=== PATIENT | male | born 1960 | race Caucasian/White ===

== ENCOUNTER 2019-07-17 01:47 | Inpatient (IN) | payer OTHER, SELFPAY ==
[2019-07-17] MEDS ORDERED: Nitroglycerin 0.4 MG TAB 1 EACH ONE (02:21)
[2019-07-17 02:29] LABS: #Eosinphils 0.1 thou/uL (0.0-0.7); #Lymphocytes 1.5 thou/uL (1.20-3.40); #Neutrophils 5.1 thou/uL (1.40-6.50); %Basophils 0.6 % (0.0-1.0); %Eosinophils 1.4 % (0.0-10.0); %Lymphocytes 19.7 % (21.0-51.0); %Monocytes 12.5 % (0.0-10.0); %Neutrophils 65.8 % (42.0-75.0); Hemoglobin 15.5 g/dL (14.0-18.0); Mean Corpuscular HGB CONC 33.4 g/dL (32.0-36.0); Mean Corpuscular Hemoglobin 27.7 pg (27.0-31.0); Mean Corpuscular Volume 82.8 fL (78.0-98.0); Mean Platelet Volume 9.4 fL (7.4-10.4); Platelet Count 197 thou/uL (130-400); RBC Distribution Width 13.6 % (11.5-14.5); White Blood Cell (WBC) Count 7.7 thou/uL (4.8-10.8)
[2019-07-17 02:45] LABS: Amphetamine Not Detected (NotDetected); Barbiturates Screen Not Detected (NotDetected); Benzodiazepine Screen Not Detected (NotDetected); Cocaine Metabolite Screen Not Detected (NotDetected); Medtox Control Line Valid? VALID (VALID); Medtox Reader # READER 1; Methadone Not Detected (NotDetected); Methamphetamine Not Detected (NotDetected); Opiate Screen Not Detected (NotDetected); Oxycodone Screen Not Detected (NotDetected); Phencyclidine (PCP) Not Detected (NotDetected); THC/Cannabinoid Screen Not Detected (NotDetected); Tricyclic Screen Not Detected (NotDetected)
[2019-07-17 02:51] LABS: ALT (SGPT) 14 U/L (8-55); AST (SGOT) 14 U/L (5-34); Alkaline Phosphatase 83 U/L (40-110); Anion Gap 14 mmol/L (10-20); BUN (Urea Nitrogen) 12 mg/dL (8.4-25.7); Bilirubin, Total 0.3 mg/dL (0.2-1.2); CK (CPK) 115 U/L (30-200); Calc. Creatinine Clearance 0 mL/min (70-130); Calcium 9.3 mg/dL (7.8-10.44); Carbon Dioxide 22 mmol/L (23-31); Chloride 102 mmol/L (98-107); Estimated GFR-MDRD 76; Globulin 3.2 g/dL (2.4-3.5); Glucose 369 mg/dL (80-115); Lipase 15 U/L (8-78); Potassium 3.9 mmol/L (3.5-5.1); Protein, Total 7.2 g/dL (5.8-8.1); Sodium 134 mmol/L (136-145)
[2019-07-17 03:18] LABS: CKMB 5.6 ng/mL (0-6.6)
[2019-07-17] MEDS ORDERED: Enoxaparin Sodium 100 MG/ML SYRINGE SC SCH (04:00)
[2019-07-17] MEDS ORDERED: Enoxaparin Sodium 100 MG/ML SYRINGE ONE (04:03)
[2019-07-17 04:46] LABS: Troponin I 0.535 ng/mL (< 0.028)
[2019-07-17] MEDS ORDERED: Nitroglycerin 0.4 MG TAB (25 Tab Bottle) SL PRN (04:58)
[2019-07-17] MEDS ORDERED: Morphine 2 MG/ML SYRINGE SLOW IVP PRN (04:59)
[2019-07-17] MEDS ORDERED: Ondansetron PF 4 MG/2 ML Vial IVP PRN (04:59)
[2019-07-17] MEDS ORDERED: hydrALAZINE 20 MG/ML VIAL SLOW IVP PRN (04:59)
[2019-07-17] MEDS ORDERED: cloNIDine 0.1 MG TAB PO PRN (04:59)
[2019-07-17] MEDS ORDERED: Promethazine HCl 12.5 MG in Sodium Chloride 0.9% 50 ML IVPB PRN (04:59)
[2019-07-17] MEDS ORDERED: Acetaminophen 325 MG TAB PO PRN (05:00)
[2019-07-17] MEDS ORDERED: Bisacodyl 5 MG TAB PO PRN (05:00)
[2019-07-17] MEDS ORDERED: Senokot S 8.6-50 MG TAB PO PRN (05:00)
[2019-07-17] MEDS ORDERED: Bisacodyl 10 MG SUPP PR PRN (05:00)
[2019-07-17] MEDS ORDERED: HYDROcodone/Acetaminophen 5/325 mg Tablet PO PRN (05:00)
--- NOTE | 2019-07-17 05:01 | PDOC.HHP ---
Hospitalist HPI - History of Present Illness Chest pain History of Present Illness: Patient is a 59 year old male with PMH CAD, CABG who presents to ED for chest pain which began today, 01/22 earlier, radiated to arm, now sleeping but rousable. No SOB. Has h/o CABG, sees Dr Lundberg, got out of [facility] this last summer. Was told may need to see Dr Chong (who did previous surgery) about redo CABG, but details not clear from conversation. Has severe ASA allergy confirmed by me, patient already on Brilinta and reports compliance. In ED, troponins elevated and given lovenox. Hospitalist ROS - Review of Systems Constitutional: denies: fever, chills, sweats, weakness, malaise, other Eyes: denies: pain, vision change, conjunctivae inflammation, eyelid inflammation, redness, other ENT: denies: ear pain, ear discharge, nose pain, nose discharge, nose congestion , mouth pain, mouth swelling, throat pain, throat swelling, other Cardiovascular: reports: chest pain. denies: palpitations, orthopnea, paroxysmal noc. dyspnea, edema, light headedness, other Gastrointestinal: denies: nausea, vomiting, abdominal pain, diarrhea, constipation, melena, hematochezia, other Genitourinary: denies: dysuria, frequency, incontinence, hematuria, retention, other Musculoskeletal: denies: neck pain, shoulder pain, arm pain, back pain, hand pain, leg pain, foot pain, other Skin: denies: rash, lesions, xochilt, bruising, other Neurological: denies: weakness, numbness, incoordination, change in speech, confusion, seizures, other All other systems reviewed; all pertinent +/- noted in HPI/Subj Hospitalist History - Past Medical History Other Medical History: Flu vaccine not up to date, Tetanus not up to date, Pneumococcal vaccine not up to date, Past medical history includes cardiac history, coronary artery disease , Past medical history includes history of hyperlipidemia, Notes: CABG X 3 2014, Past medical history includes history of hypertension, which has been treated, Patient is compliant, Past medical history includes history of malignancy, primary site skin, treated with surgery, Past medical history includes pulmonary disease, chronic obstructive pulmonary disease. COPD. - Past Surgical History Other Surgical History: Surgical history of cholecystectomy, Surgical history of tonsillectomy, Surgical history of coronary artery bypass graft surgery, three vessels. RIGHT KNEE LAPRASCOPIC SURGERY left. - Family History Family History: reports: no pertinent history - Social History Other Social History: Patient currently uses drugs, abuses methamphetamines, Drug history notes: last use 09/2015, Patient currently uses tobacco, smokes cigarettes, 1 cigarette per day, last cigarette 09/2015,. - Exam General Appearance: NAD, awake alert Eye: PERRL, anicteric sclera ENT: normocephalic atraumatic, no oropharyngeal lesions, moist mucosa Neck: supple, symmetric, no JVD, no thyromegaly, no lymphadenopathy, no carotid bruit Heart: RRR, no murmur, no gallops, no rubs, normal peripheral pulses Respiratory: CTAB Gastrointestinal: soft, non-tender, non-distended, normal bowel sounds, no palpable masses, no hepatomegaly, no splenomegaly, no bruit Extremities: no cyanosis, no clubbing, no edema Skin: normal turgor, no lesions, no rashes Neurological: cranial nerve grossly intact, normal sensation to touch, no weakness, no focal deficits, no new deficit Musculoskeletal: normal tone, normal strength, no muscle wasting Psychiatric: normal affect, normal behavior, A&O x 3 Hospitalist Results - Labs Result Diagrams: 07/17/19 02:00 07/17/19 02:00 Lab results: WBC 7.7 thou/uL (4.8-10.8) 07/17/19 02:00 Hgb 15.5 g/dL (14.0-18.0) 07/17/19 02:00 Hct 46.4 % (42.0-52.0) 07/17/19 02:00 MCV 82.8 fL (78.0-98.0) 07/17/19 02:00 Plt Count 197 thou/uL (130-400) 07/17/19 02:00 Neutrophils % 65.8 % (42.0-75.0) 07/17/19 02:00 Sodium 134 mmol/L (136-145) L 07/17/19 02:00 Potassium 3.9 mmol/L (3.5-5.1) 07/17/19 02:00 Chloride 102 mmol/L (98-107) 07/17/19 02:00 Carbon Dioxide 22 mmol/L (23-31) L 07/17/19 02:00 BUN 12 mg/dL (8.4-25.7) 07/17/19 02:00 Creatinine 1.00 mg/dL (0.7-1.3) 07/17/19 02:00 Glucose 369 mg/dL (80-115) H 07/17/19 02:00 Calcium 9.3 mg/dL (7.8-10.44) 07/17/19 02:00 Total Bilirubin 0.3 mg/dL (0.2-1.2) 07/17/19 02:00 AST 14 U/L (5-34) 07/17/19 02:00 ALT 14 U/L (8-55) 07/17/19 02:00 Alkaline Phosphatase 83 U/L (40-110) 07/17/19 02:00 Creatine Kinase 115 U/L (30-200) 07/17/19 02:00 CK-MB (CK-2) 5.6 ng/mL (0-6.6) 07/17/19 02:00 Troponin I 0.535 ng/mL (< 0.028) H* 07/17/19 04:05 Serum Total Protein 7.2 g/dL (5.8-8.1) 07/17/19 02:00 Albumin 4.0 g/dL (3.4-4.8) 07/17/19 02:00 Lipase 15 U/L (8-78) 07/17/19 02:00 Additional comment: Labs, EKG, vitals reviewed BP: 135/77 Pulse: 71 Resp: 16 Pain: 3 O2 sat: 97 on (Room Air) Time: 07/17/2019 03:02. troponin elevated Hospitalist H&P A/P - Plan Plan: Patient is a 59 year old male with PMH CAD, CABG who presents to ED for chest pain. # NSTEMI - with history of CAD, CABG - admit to telemetry - continue lovenox, ticagrelor, other home medications - severe ASA allergy confirmed, antiplatelet limited to ticagrelor - consult Dr Lundberg, NPO, trend troponin # COPD - continue spiriva, PRN duoneb # methamphetamine abuse - counselling before d/c, moniotr for withdrawal
[2019-07-17] MEDS ORDERED: Ipratropium Bromide 2.5 ml Neb ONE (07:10)
[2019-07-17] MEDS: Ipratropium Bromide 2.5 ml Neb NEB SCH ×4 (07:17→23:16)
--- NOTE | 2019-07-17 09:04 | RAD ---
PORTABLE CHEST ONE VIEW: 07/17/2019 1:38 a.m. HISTORY: Chest pain. COMPARISON: 01/06/2017 FINDINGS: There are changes of median sternotomy. The heart size is normal. No lobar consolidation, pneumothora los or pleural effusions are seen. There is mild infiltrate versus atelectatic change in the left jimmie g base. POS: [facility]
[2019-07-17] MEDS: TICAGRELOR 90 MG TABLET PO SCH ×2 (10:40→20:18)
[2019-07-17 11:30] LABS: Troponin I 1.508 ng/mL (< 0.028)
[2019-07-17] MEDS ORDERED: hydrALAZINE 20 MG/ML VIAL ONE (11:34)
[2019-07-17] MEDS ORDERED: hydrALAZINE 20 MG/ML VIAL SLOW IVP SCH (11:45)
[2019-07-17] MEDS: Carvedilol 6.25 MG TAB PO SCH ×2 (12:35→17:48)
[2019-07-17] MEDS: Polyethylene Glycol 3350 17 GM Packet PO SCH (17:03)
[2019-07-17 17:50] VITALS: BMI 33.2
[2019-07-17 18:52] LABS: Troponin I 2.025 ng/mL (< 0.028)
[2019-07-17] MEDS ORDERED: Communication Order-Pharmacy FS SCH (19:15)
--- NOTE | 2019-07-17 19:42 | CON ---
DATE OF CONSULTATION: 07/17/2019 REASON FOR CONSULTATION: Non-STEMI. PRIMARY HISTOLOGY TEACHER: Margoth Lundberg MD HISTORY OF PRESENT ILLNESS: Mr. Pichardo is a very pleasant 59-year-old white gentleman, who comes to the hospital for chest pain. He was brought in and evaluated in the ER. Troponins were drawn and they have been trending up, so Cardiology has been consulted for further evaluation and care. He has not seen Dr. Lundberg in some time. He had bypass surgery back in April 2015. About a year later, he presented to the hospital and a repeat heart catheterization showed an anastomotic lesion from the JARAMILLO to the LAD, which was successfully stented with very good results. I have reviewed those films. He had a widely patent bypass graft to the right coronary artery, which is chronically occluded. He was in [facility] recently and he states that he has been having chest pain. He left [facility] about 6 months ago around summer and has been having episodes of chest pain on and off. Today, he had an episode that brought him to the ER as it was worse than before. Cardiology is being consulted for this. PAST MEDICAL HISTORY: 1. Coronary artery disease, status post CABG as above. 2. Ischemic cardiomyopathy, EF around 35%. 3. Hypertension. 4. Hyperlipidemia. 5. COPD. 6. Tobacco use. 7. Polysubstance abuse in the past. 8. He has been clean for 3 years from his report. PAST SURGICAL HISTORY: 1. CABG x3 in 2014. Reading Dr[address] Chong's note, he had a JARAMILLO to the LAD, a vein graft to PDA at its origin and a saphenous vein to an apical LV branch. 2. Stenting in April 2016 as above. 3. Right total knee replacement. SOCIAL HISTORY: Continues to smoke, but no drug use. No alcohol use. OUTPATIENT MEDICATIONS: Family will bring medication list from [facility] as he has been on all his medications, he still has some left. ALLERGIES: 1. ASPIRIN GIVES HIVES. 2. IBUPROFEN GIVES HIVES. FAMILY HISTORY: Brother with coronary artery disease and a second brother with lung cancer. REVIEW OF SYSTEMS: A 12-point review of systems was done and was all negative unless stated in the history of present illness. PHYSICAL EXAMINATION: VITAL SIGNS: Temperature 98.1, pulse 77, respiratory rate 18, saturations 97% on room air, and blood pressure 126/85. GENERAL: Awake, alert, oriented x3, in no distress. HEENT: Normocephalic and atraumatic. NECK: Supple. LUNGS: Clear. CARDIOVASCULAR: S1, S2. No S3 or S4. No murmurs. ABDOMEN: Soft. Positive bowel sounds. EXTREMITIES: No edema. SKIN: Warm and dry. LABORATORY DATA: Laboratory work was reviewed. CBC with a white count of 7, hemoglobin 15, hematocrit 46, platelet count 197. Chemistries are unremarkable except for sodium 134. Troponin was 0.35, 0.53, now 1.5 and then 2.0. Urine drug screen is completely negative. EKG was reviewed. Chest x-ray was reviewed. ASSESSMENT/PLAN: 1. Fnf-MD-qheyokyem myocardial infarction. 2. Coronary artery disease, status post coronary artery bypass graft x3 in the past. 3. Status post percutaneous coronary intervention to the anastomosis with left internal mammary artery to the left anterior descending in 2016. 4. Noncompliance. PLAN: 1. We will plan on proceeding with heart catheterization. We spoke about the risks and benefits of the procedure. Risks included, but not limited to stroke, [place], , bleeding, need for blood transfusion, limb loss, organ loss. The patient understands, verbalized understanding of this and agrees to proceed. 2. May need bare metal stenting given his lack of compliance. If stent needs to be placed in a vein graft, this is better treated with drug-eluting stent. 3. Further recommendations per results of coronary angiogram. 4. We will plan on doing a right femoral access. Job ID: [id number]
[2019-07-17] MEDS: Atorvastatin Calcium 40 MG TAB PO SCH (20:18)
[2019-07-17] MEDS: Enoxaparin Sodium 100 MG/ML SYRINGE SC SCH (20:18)
[2019-07-18] MEDS ORDERED: Sodium Chloride 0.9% 250 ML IV SCH (00:01)
[2019-07-18 04:43] LABS: #Eosinphils 0.1 thou/uL (0.0-0.7); #Lymphocytes 1.4 thou/uL (1.20-3.40); #Monocytes 0.9 thou/uL (0.11-0.59); #Neutrophils 4.1 thou/uL (1.40-6.50); %Basophils 0.2 % (0.0-1.0); %Eosinophils 1.1 % (0.0-10.0); %Lymphocytes 21.8 % (21.0-51.0); %Monocytes 14.4 % (0.0-10.0); %Neutrophils 62.5 % (42.0-75.0); Mean Corpuscular HGB CONC 32.6 g/dL (32.0-36.0); Mean Corpuscular Hemoglobin 26.9 pg (27.0-31.0); Mean Corpuscular Volume 82.4 fL (78.0-98.0); Mean Platelet Volume 9.1 fL (7.4-10.4); Platelet Count 200 thou/uL (130-400); RBC Distribution Width 13.9 % (11.5-14.5); Red Blood Cell (RBC) Count 5.59 mill/uL (4.70-6.10); White Blood Cell (WBC) Count 6.5 thou/uL (4.8-10.8)
[2019-07-18] MEDS: Carvedilol 6.25 MG TAB PO SCH ×2 (05:05→18:36)
[2019-07-18] MEDS: TICAGRELOR 90 MG TABLET PO SCH ×2 (05:05→20:46)
[2019-07-18 05:14] LABS: Anion Gap 11 mmol/L (10-20); BUN (Urea Nitrogen) 11 mg/dL (8.4-25.7); Calc. Creatinine Clearance 127 mL/min (70-130); Calcium 8.8 mg/dL (7.8-10.44); Carbon Dioxide 25 mmol/L (23-31); Chloride 105 mmol/L (98-107); Estimated GFR-MDRD 85; Glucose 185 mg/dL (80-115); Magnesium 1.9 mg/dL (1.6-2.6); Potassium 3.5 mmol/L (3.5-5.1); Sodium 137 mmol/L (136-145)
[2019-07-18] MEDS: Ipratropium Bromide 2.5 ml Neb NEB SCH ×4 (07:40→23:44)
[2019-07-18] MEDS: Enoxaparin Sodium 100 MG/ML SYRINGE SC SCH (07:45)
[2019-07-18] MEDS: Polyethylene Glycol 3350 17 GM Packet PO SCH (07:46)
[2019-07-18] MEDS ORDERED: FLU VACC QS2019-20(6MOS UP)/PF 60 MCG/0.5 ML SYRINGE IM ONE (09:00)
[2019-07-18] MEDS ORDERED: Iopamidol 370 76% 100 ML VIAL ONE (09:57)
[2019-07-18] MEDS ORDERED: Heparin (Artline) 1,000 ML ONE (11:10)
[2019-07-18] MEDS ORDERED: Midazolam HCl 2 mg/2 ml Vial ONE (11:44)
[2019-07-18] MEDS ORDERED: Fentanyl 100 MCG/2 ML VIAL ONE (11:45)
[2019-07-18] MEDS ORDERED: Sodium Chloride 0.9% 200 ML IV PRN (12:24)
[2019-07-18] MEDS ORDERED: Acetaminophen/Codeine 30-300mg Tablet PO PRN (12:24)
[2019-07-18] MEDS ORDERED: Sodium Chloride 0.9% 500 ML IV SCH (12:30)
[2019-07-18] MEDS ORDERED: Dextrose 5% in Water 1,000 ML IV PRN (15:16)
[2019-07-18] MEDS ORDERED: HumaLOG 300 UNITS/3 ML VIAL SC PRN (15:16)
[2019-07-18] MEDS ORDERED: Dextrose 50% Abboject 50 ML SYRINGE SLOW IVP PRN (15:16)
--- NOTE | 2019-07-18 15:20 | PDOC.HOSPP ---
- Subjective Encounter Date: 07/18/19 (f/u NSTEMI) Encounter Time: 15:17 Subjective: Pt asking to go home. Denies any pain in his chest, difficulty breathing, n/v/ abd pain. - Objective Vital Signs & Weight: Vital Signs (12 hours) Temp Pulse Resp BP BP BP Pulse Ox 07/18/19 13:25 66 14 99 07/18/19 11:40 98.4 F 69 18 139/84 139 H 07/18/19 08:55 96 07/18/19 08:30 98.3 F 75 18 123/83 96 07/18/19 07:40 95 18 99 07/18/19 05:05 126/85 07/18/19 03:54 98.6 F 75 18 140/99 H 95 Weight Weight 231 lb 8 oz Result Diagrams: 07/18/19 04:13 07/18/19 04:13 EKG Reviewed by me: Yes (tele - sinus 70's) Hospitalist ROS - Medication Medications: Active Medications Generic Name Dose Route Start Last Admin Trade Name Freq PRN Reason Stop Dose Admin Atorvastatin Calcium 40 mg 07/17/19 21:00 07/17/19 20:18 Lipitor PO 40 mg QPM HAROON Administration Carvedilol 6.25 mg 07/17/19 08:00 07/18/19 05:05 Coreg PO 6.25 mg BID-WM HAROON Administration Enoxaparin Sodium 100 mg 07/17/19 21:00 07/18/19 07:45 Lovenox SC Not Given Q12HR HAROON Sodium Chloride 500 mls @ 100 mls/hr 07/18/19 12:30 07/18/19 14:28 Normal Saline 0.9% IV 07/18/19 17:29 500 mls .Q5H HAROON Administration Ipratropium [place] 2.5 ml 07/17/19 07:00 07/18/19 13:25 Atrovent NEB 2.5 ml [id number] HAROON Administration Pantoprazole Sodium 40 mg 07/17/19 09:00 07/18/19 05:05 Protonix PO 40 mg DAILY HAROON Administration Polyethylene Glycol 17 gm 07/17/19 09:00 07/18/19 07:46 Miralax PO Not Given DAILY HAROON Ticagrelor 90 mg 07/17/19 09:00 01/03/20 05:05 Brilinta PO 90 mg BID HAROON Administration - Exam General Appearance: NAD Neck: supple Heart: RRR, no murmur Respiratory: CTAB, no wheezes, no rales, no ronchi Gastrointestinal: soft, non-tender, non-distended, normal bowel sounds Extremities: no cyanosis, no clubbing, no edema Psychiatric: normal affect Hosp A/P (1) NSTEMI (non-ST elevated myocardial infarction) Code(s): I21.4 - NON-ST ELEVATION (NSTEMI) MYOCARDIAL INFARCTION Status: Acute (2) Tobacco abuse Code(s): Z72.0 - TOBACCO USE Status: Acute (3) CAD (coronary artery disease) Code(s): I25.10 - ATHSCL HEART DISEASE OF [place] CORONARY ARTERY W/O ANG PCTRS Status: Chronic (4) HTN (hypertension) Code(s): I10 - ESSENTIAL (PRIMARY) HYPERTENSION Status: Chronic (5) Hyperlipidemia Code(s): E78.5 - HYPERLIPIDEMIA, UNSPECIFIED Status: Chronic (6) Diabetes mellitus Code(s): E11.9 - TYPE 2 DIABETES MELLITUS WITHOUT COMPLICATIONS Status: Chronic Qualifiers: Diabetes mellitus type: type 2 - Plan Appreciate Cardiology consult - s/p geophysical laboratory chief today, on full anticoagulation, brillinta, statin, beta-eleno DM - pt does not check blood sugars at home - is rx metformin. Will add ACHS accuchecks and SSI Pt asking to go home - I dont recommend until cleared by Cardiology dvt prophy - fully anticoagulated GI prophy - not indicated code status full reviewed plan of care with patient/friends-family in room, no questions or further needs at end of eval pt at high risk given age, co-morbidities and current presentation
[2019-07-18] MEDS: HumaLOG 300 UNITS/3 ML VIAL SC PRN (18:37)
[2019-07-18] MEDS ORDERED: Ipratropium Bromide 2.5 ml Neb ONE ×2 (19:24→23:42)
[2019-07-18] MEDS: Atorvastatin Calcium 40 MG TAB PO SCH (20:46)
[2019-07-19 04:38] LABS: #Basophils 0.1 thou/uL (0.0-0.2); #Lymphocytes 1.2 thou/uL (1.20-3.40); #Neutrophils 4.3 thou/uL (1.40-6.50); %Basophils 0.8 % (0.0-1.0); %Eosinophils 0.7 % (0.0-10.0); %Lymphocytes 18.5 % (21.0-51.0); %Monocytes 14.8 % (0.0-10.0); %Neutrophils 65.1 % (42.0-75.0); Hemoglobin 15.6 g/dL (14.0-18.0); Mean Corpuscular HGB CONC 32.9 g/dL (32.0-36.0); Mean Corpuscular Hemoglobin 27.3 pg (27.0-31.0); Mean Corpuscular Volume 83.1 fL (78.0-98.0); Platelet Count 206 thou/uL (130-400); RBC Distribution Width 13.9 % (11.5-14.5); Red Blood Cell (RBC) Count 5.71 mill/uL (4.70-6.10); White Blood Cell (WBC) Count 6.6 thou/uL (4.8-10.8)
[2019-07-19 04:47] LABS: Anion Gap 9 mmol/L (10-20); BUN (Urea Nitrogen) 12 mg/dL (8.4-25.7); Calc. Creatinine Clearance 118 mL/min (70-130); Calcium 9.3 mg/dL (7.8-10.44); Carbon Dioxide 27 mmol/L (23-31); Chloride 105 mmol/L (98-107); Estimated GFR-MDRD 78; Glucose 182 mg/dL (80-115); Magnesium 1.9 mg/dL (1.6-2.6); Potassium 3.9 mmol/L (3.5-5.1); Sodium 137 mmol/L (136-145)
[2019-07-19] MEDS: Ipratropium Bromide 2.5 ml Neb NEB SCH ×3 (08:02→19:31)
[2019-07-19] MEDS: TICAGRELOR 90 MG TABLET PO SCH ×2 (08:30→20:45)
[2019-07-19] MEDS: Polyethylene Glycol 3350 17 GM Packet PO SCH (08:30)
[2019-07-19] MEDS: Isosorbide Mononitrate (ER) 30 MG TAB PO SCH (08:30)
[2019-07-19] MEDS: Carvedilol 6.25 MG TAB PO SCH ×2 (08:30→17:27)
[2019-07-19] MEDS: HumaLOG 300 UNITS/3 ML VIAL SC PRN ×3 (08:31→17:28)
--- NOTE | 2019-07-19 16:02 | PDOC.HOSPP ---
- Subjective Encounter Date: 07/19/19 (f/u DM) Encounter Time: 15:59 Subjective: Pt denies any chest pain,n/v/abd pain, able to ambulate without difficulty. Denies any new sx. States he is ready to go home. - Objective Vital Signs & Weight: Vital Signs (12 hours) Temp Pulse Resp BP BP Pulse Ox 07/19/19 14:14 73 16 07/19/19 11:07 82 102/66 07/19/19 08:30 146/87 H 07/19/19 08:02 88 16 97 07/19/19 08:00 96 07/19/19 07:58 97.1 F L 79 18 146/87 H 96 Weight Weight 231 lb 8 oz I&O: 07/18/19 07/19/19 07/20/19 06:59 06:59 06:59 Intake Total 1450 Balance 1450 Result Diagrams: 07/19/19 04:15 07/19/19 04:15 Additional Labs: Accuchecks 07/19/19 07/19/19 07/18/19 10:58 05:41 20:22 POC Glucose 260 H 197 H 151 H 07/18/19 17:05 POC Glucose 371 H EKG Reviewed by me: Yes (tele - sinus 60-70's) Hospitalist ROS - Medication Medications: Active Medications Generic Name Dose Route Start Last Admin Trade Name Freq PRN Reason Stop Dose Admin Atorvastatin Calcium 40 mg 07/17/19 21:00 07/18/19 20:46 Lipitor PO 40 mg QPM HAROON Administration Carvedilol 6.25 mg 07/17/19 08:00 07/19/19 08:30 Coreg PO 6.25 mg BID-WM HAROON Administration Insulin Human Lispro 0 units 07/18/19 15:16 07/19/19 11:18 Humalog SC 4 unit .MILD SLIDING SCALE PRN Administration Mild Correctional Scale Ipratropium [place] 2.5 ml 07/17/19 07:00 07/19/19 14:14 Atrovent NEB 2.5 ml [id number] HAROON Administration Isosorbide Mononitrate 30 mg 07/19/19 09:00 07/19/19 08:30 Imdur Er PO 30 mg DAILY HAROON Administration Pantoprazole Sodium 40 mg 07/17/19 09:00 07/19/19 08:30 Protonix PO 40 mg DAILY HAROON Administration Polyethylene Glycol 17 gm 07/17/19 09:00 07/19/19 08:30 Miralax PO Not Given DAILY HAROON Ticagrelor 90 mg 07/17/19 09:00 07/19/19 08:30 Brilinta PO 90 mg BID HAROON Administration - Exam General Appearance: NAD Heart: RRR, no murmur Respiratory: CTAB, no wheezes, no rales, no ronchi Gastrointestinal: soft, non-tender, non-distended, normal bowel sounds Psychiatric: normal affect Hosp A/P (1) NSTEMI (non-ST elevated myocardial infarction) Code(s): I21.4 - NON-ST ELEVATION (NSTEMI) MYOCARDIAL INFARCTION Status: Acute (2) Tobacco abuse Code(s): Z72.0 - TOBACCO USE Status: Acute (3) CAD (coronary artery disease) Code(s): I25.10 - ATHSCL HEART DISEASE OF [place] CORONARY ARTERY W/O ANG PCTRS Status: Chronic (4) HTN (hypertension) Code(s): I10 - ESSENTIAL (PRIMARY) HYPERTENSION Status: Chronic (5) Hyperlipidemia Code(s): E78.5 - HYPERLIPIDEMIA, UNSPECIFIED Status: Chronic (6) Diabetes mellitus Code(s): E11.9 - TYPE 2 DIABETES MELLITUS WITHOUT COMPLICATIONS Status: Chronic Qualifiers: Diabetes mellitus type: type 2 - Plan Appreciate Cardiology consult - s/p union laborer yesterday, brillinta, statin, beta- eleno, long-acting nitrate DM - uncontrolled. Resume metformin, add glyburide Pt shared frustration about experience today - shared with charge nurse. We spent time discussing the reason behind the medications, where his body is at ,confirming that he has diabetes and it is a strong risk for future heart attack and stroke. . .with a focus on what he can do to reduce hisrisk. We also talked about tobacco and how destructive it is for his heart. dvt prophy - ambulatory GI prophy - not indicated code status full reviewed plan of care with patient, no questions or further needs at end of eval pt at high risk given age, co-morbidities and current presentation
[2019-07-19] MEDS: metFORMIN 500 MG TAB PO SCH (17:27)
[2019-07-19] MEDS: glipiZIDE 5 MG TAB PO SCH (17:27)
[2019-07-19] MEDS: Atorvastatin Calcium 40 MG TAB PO SCH (20:45)
[2019-07-20] MEDS: Ipratropium Bromide 2.5 ml Neb NEB SCH ×2 (00:26→07:22)
[2019-07-20 05:17] LABS: Anion Gap 10 mmol/L (10-20); BUN (Urea Nitrogen) 14 mg/dL (8.4-25.7); Calc. Creatinine Clearance 109 mL/min (70-130); Calcium 8.9 mg/dL (7.8-10.44); Carbon Dioxide 28 mmol/L (23-31); Chloride 104 mmol/L (98-107); Estimated GFR-MDRD 71; Glucose 144 mg/dL (80-115); Sodium 138 mmol/L (136-145)
[2019-07-20 05:58] LABS: Band 2 % (5-11); Eosinophils 2 % (0-10); Hemoglobin 14.6 g/dL (14.0-18.0); Lymphocytes 18 % (21-51); MDiff Complete? YES; Mean Corpuscular Hemoglobin 28.8 pg (27.0-31.0); Mean Corpuscular Volume 84.7 fL (78.0-98.0); Mean Platelet Volume 8.9 fL (7.4-10.4); Monocytes 15 % (0-10); Neutrophil 61 % (42-75); Platelet Count 200 thou/uL (130-400); Platelet Morphology Comment Appears Adequate; RBC Distribution Width 13.9 % (11.5-14.5); Reactive Lymphocytes 2 % (0-10); Red Blood Cell (RBC) Count 5.09 mill/uL (4.70-6.10); White Blood Cell (WBC) Count 7.8 thou/uL (4.8-10.8)
[2019-07-20] MEDS: TICAGRELOR 90 MG TABLET PO SCH (10:00)
[2019-07-20] MEDS: glipiZIDE 5 MG TAB PO SCH (10:00)
[2019-07-20] MEDS: Isosorbide Mononitrate (ER) 30 MG TAB PO SCH (10:00)
[2019-07-20] MEDS: metFORMIN 500 MG TAB PO SCH (10:00)
[2019-07-20] MEDS: Carvedilol 6.25 MG TAB PO SCH (10:01)
[2019-07-20] MEDS: Polyethylene Glycol 3350 17 GM Packet PO SCH (10:02)
[2019-07-20 13:00] VITALS: BP 110/69; TEMP 98.5
--- NOTE | 2019-07-20 14:59 | DIS ---
DATE OF ADMISSION: 07/17/2019 DATE OF DISCHARGE: 07/20/2019 DIRECTOR EXPORT: Dr. Goodson of Cardiology. PROCEDURE PERFORMED: Catheterization. MEDICATIONS: Reconciled at discharge. New medications: 1. Lipitor 40 mg at bedtime. 2. Carvedilol 6.25 mg p.o. b.i.d. with meals. 3. Plavix 75 mg at bedtime. 4. Glipizide/metformin 5/500 one tablet b.i.d. with meals. 5. Imdur 30 mg once daily. Please note, all these medications are on the reduced cost list at [facility], confirmed with the patient, who states he will be able to afford it. All have been provided for 1 month, further refills either from Cardiology or the patient's primary care provider. The patient was not really taking medications at home, we will recommend he resume; 1. Spiriva 1 inhalation daily. 2. Nitroglycerin 0.4 mg every 5 minutes as needed for chest pain. Medications discontinued are; 1. Amlodipine. 2. Carvedilol 12.5 mg. 3. Spironolactone. 4. Metformin. FINAL DIAGNOSES: 1. NSTEMI with diffuse coronary artery disease 2. Diabetes Mellitus type 2, uncontrolled 3. Hypertension 4. Dyslipidemia SECONDARY DIAGNOSES: 1. Tobacco abuse FOLLOWUP: Follow up is with Dr. Goodson, recommend within 2 weeks to re-evaluate this hospitalization and chest pain. The patient is encouraged to find a primary care provider, is aware of [facility] in [place] and the [facility], to monitor diabetes, adjust medication, and address any other health needs. HISTORY OF PRESENT ILLNESS: Mr. Pichardo is a 59-year-old male with history of coronary artery disease and CABG, who presented to the emergency room with chest pain that radiated to his arm. Because of his history, he was admitted. HOSPITAL COURSE: The patient was evaluated and underwent cardiac catheterization with Dr. Goodson. On that catheterization, he has an occluded RCA, occluded mid LAD, severe mid IR, small-vessel disease, diffuse left circumflex disease. It did show patent SVG to RCA graft and JARAMILLO to LAD at anastomosis. Based on these findings , Dr. Goodson recommended medical management. The patient has been managed on Brilinta, beta-eleno, high-dose statin, and long-acting nitrate. He has tolerated this well. He has been monitored on telemetry without arrhythmia. He is ambulating without difficulty and denies any significant shortness of breath. The patient reports not taking his medications prior to this admission. He also uses tobacco. We discussed the importance of regular medication use, and how this affects and influences the heart. In addition, we talked about the destruction of nicotine to the heart, setting the patient up for recurrent heart attack and stroke in the future. The patient is encouraged to continue with cessation efforts and to obtain a primary care provider and work with them for complete tobacco cessation. The patient does have diabetes. He was started on metformin while here, adding glyburide as his blood sugars were not well controlled. There is a combination pill through [employer] available and I have ordered this. He will need to follow up with the primary care provider for management/adjustment of medication. Per the patient's request, all medications are generic and available on a low- cost formulary list. For this reason, he is being changed back to Plavix for affordability. He will follow up with Dr. Goodson regarding Brillinta. He is not on aspirin due to an allergy. The patient is overall doing well and does meet criteria for discharge to home. He does need close followup and has return/seek care precautions. PHYSICAL EXAMINATION: VITAL SIGNS: On day of discharge, blood pressure 123/83, pulse 75, respirations 18, saturations 96% on room air, and temperature 98.3. GENERAL: Awake, alert, responsive, in no apparent distress. Able to speak in full sentences. LUNGS: Clear to auscultation. No audible wheezing, rhonchi, or rales. HEART: Normal S1 and S2. Regular rate and rhythm. No significant murmur. ABDOMEN: Soft. Present bowel sounds. Nontender. Nondistended. EXTREMITIES: No edema. MCDONNELL FINDINGS AND TEST RESULTS: Urine drug screen on admission negative. Chemistries; 138, 4.0, 104, 28, 1.06, and 144. Glucose levels ranged from 144 to 249 over the past 24 hours. Troponin 0.535, 1.508, 2.025. LFTs; T-bili 0.3, AST 14, ALT 14, alkaline phosphatase 83, total protein 7.2, and albumin 4.0. CBC; 7.8, 14.6, 43.1, and 200. Catheterization physician report shows severe mid IR, small vessel 1.5 mm, occluded mid LAD, occluded RCA, diffuse left circumflex disease. Patent SVG to RCA, patent JARAMILLO to the LAD with widely patent stent anastomosis. DIET: Heart healthy, carbohydrate consistent. ACTIVITY: As tolerated. The patient requests a week off from work prior to return and I support this. DISCHARGE DISPOSITION: Home. CODE STATUS: Full. I reviewed with this patient this hospitalization, the importance of primary care provider, the importance of medication and adherence to taking them, the essential nature of following up with his specialists, and to seek care precautions. He demonstrates understanding. TIME SPENT: Total time coordinating discharge is 40 minutes. Job ID: [id number] [id number]
== END 2019-07-20 13:39 | disposition home or self-care (01) | DRG 282 ==
LOC: ERS 01:47 → ERHOLD 03:40 → OBSVTOIN 03:40 → 2NO 16:22
PROVIDERS: ADMIT Internal Medicine; ATTEND Internal Medicine
PROC: 4A023N7 Measurement of Cardiac Sampling and Pressure, Left Heart, Percutaneous Approach (ICD-10-PCS; principal; 2019-07-18)
PROC: B2111ZZ Fluoroscopy of Multiple Coronary Arteries using Low Osmolar Contrast (ICD-10-PCS; 2019-07-18)
PROC: B2151ZZ Fluoroscopy of Left Heart using Low Osmolar Contrast (ICD-10-PCS; 2019-07-18)
DX: I21.4 Non-ST elevation (NSTEMI) myocardial infarction (principal); I25.10 Atherosclerotic heart disease of native coronary artery without angina pectoris; Z95.1 Presence of aortocoronary bypass graft; J44.9 Chronic obstructive pulmonary disease, unspecified; I10 Essential (primary) hypertension; Z90.49 Acquired absence of other specified parts of digestive tract; Z90.89 Acquired absence of other organs; F15.10 Other stimulant abuse, uncomplicated; Z91.14 Patient's other noncompliance with medication regimen; E11.9 Type 2 diabetes mellitus without complications; E78.5 Hyperlipidemia, unspecified; F17.200 Nicotine dependence, unspecified, uncomplicated; Z88.8 Allergy status to other drugs, medicaments and biological substances
CPT/HCPCS: 36415; 36416; 71045; 80048; 80053; 80306; 82550; 82553; 83690; 83735; 84484; 85025; 93005; 93458; 94640; 96372; 99152; J0360; J1644; J1650; J2250; J3010; Q9967

== ENCOUNTER 2021-12-14 17:51 | Observation (INO) | payer MEDICARE, SELFPAY ==
[2021-12-14] MEDS: hydrALAZINE 20 MG/ML VIAL SLOW IVP PRN (23:17)
[2021-12-14] MEDS ORDERED: Ondansetron PF 4 MG/2 ML Vial IVP PRN (23:33)
[2021-12-14] MEDS ORDERED: HumaLOG 300 UNITS/3 ML VIAL SC PRN ×2 (23:37)
[2021-12-14] MEDS ORDERED: Dextrose 5% in Water 1,000 ML IV PRN (23:37)
[2021-12-14] MEDS ORDERED: Dextrose 50% Abboject 50 ML SYRINGE SLOW IVP PRN (23:37)
[2021-12-14] MEDS ORDERED: Amlodipine 10 MG TAB PO SCH (23:45)
[2021-12-15 00:53] VITALS: BMI 34.7
[2021-12-15] MEDS: Acetaminophen 325 MG TAB PO PRN ×2 (03:46→08:03)
[2021-12-15] MEDS: hydrALAZINE 20 MG/ML VIAL SLOW IVP PRN (04:30)
[2021-12-15 05:33] LABS: Anion Gap 11 mmol/L (10-20); BUN (Urea Nitrogen) 10 mg/dL (8.4-25.7); Calc. Creatinine Clearance 135 mL/min (70-130); Calcium 8.8 mg/dL (7.8-10.44); Carbon Dioxide 26 mmol/L (23-31); Chloride 106 mmol/L (98-107); Glucose 154 mg/dL (80-115); Potassium 3.9 mmol/L (3.5-5.1); Sodium 139 mmol/L (136-145)
[2021-12-15] MEDS ORDERED: hydrALAZINE 20 MG/ML VIAL SLOW IVP SCH (05:45)
[2021-12-15 05:48] LABS: Band 4 % (5-11); Eosinophils 5 % (0-10); Hemoglobin 14.7 g/dL (14.0-18.0); Lymphocytes 18 % (21-51); MDiff Complete? YES; Mean Corpuscular HGB CONC 33.1 g/dL (32.0-36.0); Mean Corpuscular Hemoglobin 30.2 pg (27.0-31.0); Mean Platelet Volume 8.7 fL (7.4-10.4); Monocytes 15 % (0-10); Neutrophil 57 % (42-75); Platelet Count 164 thou/uL (130-400); Platelet Morphology Comment Appears Adequate; RBC Morphology Normal; Red Blood Cell (RBC) Count 4.88 mill/uL (4.70-6.10); White Blood Cell (WBC) Count 5.9 thou/uL (4.8-10.8)
[2021-12-15] MEDS ORDERED: Carvedilol 6.25 MG TAB PO SCH (08:00)
[2021-12-15 08:03] VITALS: TEMP 98.1
[2021-12-15 09:17] VITALS: BP 122/67
[2021-12-15] MEDS ORDERED: Atorvastatin Calcium 40 MG TAB PO SCH (21:00)
[2021-12-15] MEDS ORDERED: Amlodipine 10 MG TAB PO SCH (21:00)
== END 2021-12-15 10:52 | disposition home or self-care (01) ==
LOC: NEURO 17:51
PROVIDERS: ADMIT Internal Medicine; ATTEND Emergency Medicine
DX: I16.0 Hypertensive urgency (principal); I10 Essential (primary) hypertension; S06.5X9A Traumatic subdural hemorrhage with loss of consciousness of unspecified duration, initial encounter; I25.10 Atherosclerotic heart disease of native coronary artery without angina pectoris; E11.9 Type 2 diabetes mellitus without complications; E78.5 Hyperlipidemia, unspecified; J44.9 Chronic obstructive pulmonary disease, unspecified; Z79.82 Long term (current) use of aspirin; Z79.899 Other long term (current) drug therapy; Z95.1 Presence of aortocoronary bypass graft; F17.210 Nicotine dependence, cigarettes, uncomplicated
CPT/HCPCS: 36415; 36416; 70450; 80048; 85025; 90471; 90732; 96374; 96376; G0009; G0378; J0360; J1815

== ENCOUNTER 2023-06-03 08:57 | Emergency (ER) | payer MEDICARE ==
[2023-06-03 12:21] LABS: Bacteria/HPF None Seen HPF (None Seen); Bilirubin Negative (Negative); Blood, Urine Negative (Negative); CAUTI Indications for Culture Dysuria,urgency,freq; Clarity Clear (Clear); Glucose, Urine (Dipstick) 150 mg/dL (Negative); Ketone, Urine Negative (Negative); Leukocyte Negative Leu/uL (Negative); Nitrite Negative (Negative); Protein, Urine (Dipstick) 10 mg/dL (Neg-Trace); RBC/HPF 0-3 HPF (0-3); Specific Gravity, Urine 1.025 (1.002-1.036); Squamous Epithelial None Seen HPF (0-3); WBC/HPF 0-3 HPF (0-3); pH, Urine 6.5 (5.0-9.0)
[2023-06-03 12:31] LABS: Urine Culture Reflex No No
[2023-06-03] MEDS ORDERED: Lidocaine 1% PF 5 ML VIAL ONE (12:39)
[2023-06-03 21:10] LABS: Chlam.trachomatis by PCR,Urine Not Detected (NotDetected); GC N.gonorrhoeae PCR,UrineVOID Not Detected (NotDetected)
== END 2023-06-03 13:14 | disposition home or self-care (01) ==
LOC: ERS 08:57
DX: N49.2 Inflammatory disorders of scrotum (principal); I25.10 Atherosclerotic heart disease of native coronary artery without angina pectoris; E11.9 Type 2 diabetes mellitus without complications; I10 Essential (primary) hypertension; J44.9 Chronic obstructive pulmonary disease, unspecified; F17.210 Nicotine dependence, cigarettes, uncomplicated
CPT/HCPCS: 55100; 76870; 81001; 87491; 87591; 93976